=== PATIENT | female | born 1975 | race Two or more races ===

== ENCOUNTER 2019-01-04 22:03 | Emergency (ER) | payer OTHER ==
[~2019-01-04] VITALS: Ht 170.2 cm; Wt 107.7 kg
--- NOTE | 2019-01-04 22:06 | NUR ---
Pt called to triage. Per security, pt in the bathroom.
[2019-01-04] MEDS ORDERED: CIPROFLOXACIN 500 MG TABLET ONE (22:42)
[2019-01-04] MEDS ORDERED: ONDANSETRON 2MG/ML, 2ML ONE (22:42)
[2019-01-04] MEDS ORDERED: FAMOTIDINE 20 MG/2 ML ONE (22:42)
[2019-01-04] MEDS ORDERED: ACETAMINOPHEN 500 MG TABLET ONE (22:42)
--- NOTE | 2019-01-04 22:59 | NUR ---
Pt just came back from [place] Saturday, diarrhea since returning. Pt c/o intermittent left sided chest pain (described as a cramp) since [id number] this afternoon.
[2019-01-04] MEDS ORDERED: FAMOTIDINE 20 MG/2 ML IVP ONE (23:00)
[2019-01-04] MEDS ORDERED: CIPROFLOXACIN 500 MG TABLET PO ONE (23:00)
[2019-01-04] MEDS ORDERED: SODIUM CHLORIDE 0.9% 1,000ML IVBOLUS ONE (23:00)
[2019-01-04] MEDS ORDERED: ACETAMINOPHEN 500 MG TABLET PO ONE (23:00)
[2019-01-04] MEDS ORDERED: ONDANSETRON 2MG/ML, 2ML IVPush ONE (23:00)
[2019-01-04 23:14] LABS: BASOPHILS # (AUTO) 0.04 x10^3/uL (0-0.1); BASOPHILS % (AUTO) 1 % (0-1); EOSINOPHILS # (AUTO) 0.44 x10^3/uL (0-0.4); EOSINOPHILS % (AUTO) 6 % (1-7); LYMPHOCYTES # (AUTO) 2.28 x10^3/uL (1-3.4); LYMPHOCYTES % (AUTO) 30 % (22-44); MD NO; MEAN CORPUSCULAR HEMOGLOBIN 28.2 pg (27.0-34.8); MEAN CORPUSCULAR HGB CONC 33.5 g/dL (32.4-35.8); MEAN CORPUSCULAR VOLUME 84.2 fL (80-100); MEAN PLATELET VOLUME 9.9 fL (7.4-10.4); MONOCYTES # (AUTO) 0.81 x10^3/uL (0.2-0.8); MONOCYTES % (AUTO) 11 % (2-9); NEUTROPHILS # (AUTO) 4.12 x10^3/uL (1.8-6.8); NEUTROPHILS % (AUTO) 54 % (42-75); PLATELET COUNT 200 x10^3/uL (130-400); RED BLOOD COUNT 4.98 x10^6/uL (3.82-5.3); RED CELL DISTRIBUTION WIDTH 13.8 % (9.6-15.2)
--- NOTE | 2019-01-04 23:18 | NUR ---
PT [facility] GIVEN STOOL AND LABS SENT, IN NAD
[2019-01-04 23:34] LABS: ALANINE AMINOTRANSFERASE 53 U/L (12-78); ALBUMIN 3.7 g/dL (3.4-5.0); ANION GAP 8 mmol/L (5-15); CALCIUM 8.8 mg/dL (8.5-10.1); CHLORIDE 117 mmol/L (98-107)
[2019-01-04 23:39] LABS: ALKALINE PHOSPHATASE 62 U/L (45-117); BILIRUBIN,TOTAL 0.3 mg/dL (0.2-1.0); CREATININE 0.71 mg/dL (0.55-1.02); TOTAL PROTEIN 7.3 g/dL (6.4-8.2)
--- NOTE | 2019-01-05 00:32 | NUR ---
BREAK RN: IVF finished infusing. Pt states that she is feeling better, "just tired," after fluids and medications. Patient given discharge instructions and she has confirmed that she understands the instructions. Patient ambulatory with steady gait.
[2019-01-05 00:33] VITALS: BP 98/54
[2019-01-05 08:22] LABS: CRYPTOSPORIDIUM ANTIGEN Negative (Negative)
== END 2019-01-05 00:35 | disposition home or self-care (01) ==
LOC: ED 23:59
DX: R10.84 Generalized abdominal pain (principal); R19.7 Diarrhea, unspecified; I48.91 Unspecified atrial fibrillation
CPT/HCPCS: 36415; 80053; 83690; 84703; 85025; 87046; 87328; 87329; 87427; 89055; 93005; 96361; 96374; 96375; 99284; J2405; J3490; J7030